=== PATIENT | female | born 1970 | race Caucasian/White ===

== ENCOUNTER 2017-01-28 11:22 | Emergency (ER) | payer OTHER ==
[~2017-01-28] VITALS: Ht 167.6 cm; Wt 95.5 kg
[~2017-01-28 11:22] MED LIST: ALD250; FRRS300; IBUP600T44; OXYC-57; PRCSR90; PRENTAB26
[2017-01-28 11:29] VITALS: TEMP 36.6; Ht 167.6 cm; Wt 95.5 kg
[2017-01-28] MEDS ORDERED: XYLOCAINE 1%/SOD BICARB 20 ML VIAL INFIL ONE (12:15)
[2017-01-28] MEDS ORDERED: DIPHTHERIA/TETANUS/PERTUSSIS 0.5 ML SYR/VIAL IM. ONE (12:15)
[2017-01-28 12:53] VITALS: BP 163/91; PULSE 67; O2SAT 100
--- NOTE | 2017-01-28 17:28 | EMERGENCY ROOM VISIT NOTE ---
ED Visit Note First contact with patient: 12:05 Chief Complaint: I cut my right middle finger at work. History of Present Illness: Ms. Waller is a 46-year-old white female who ambulates into the ED complaining of right middle finger laceration. Patient reports approximately one hour ago she was cutting a piece of aluminum foil on the serrated edge of the box and accidentally cut her right middle finger over the distal phalanx. Prior to arrival she control bleeding but did not wash the wound. Associated with her wound she reports she is having a stinging discomfort in the distal aspect of the finger. She rates her discomfort 1/10. Her pain is nonradiating. Her pain worsens with palpation. She has not identified any alleviating factors related to the pain. She has not taken any medications for pain prior to arrival at the hospital. She denies any associated symptoms with her laceration. Review of Systems: As noted above in history of present illness. Past Medical History: Hypertension. Current Medications: Multivitamins. Allergies to Medications: Patient denies. Social History: Patient is currently employed; she lives with her and feels safe in her home environment; she denies tobacco use. Tetanus Immunization Status: Patient reports greater than 10 years. Physical Examination: Vital Signs: Date Time Temp Pulse Resp B/P Pulse Ox O2 Delivery O2 Flow Rate FiO2 01/28/17 12:53 67 18 163/91 100 01/28/17 11:29 36.6 72 18 178/118 99 Room Air GENERAL: 46-year-old female in mild distress due to pain, nontoxic-appearing, afebrile and hemodynamically stable. NEUROLOGICAL: Awake, alert and oriented to person, place and time. Answering questions appropriately and following commands. Normal gait. Good hand eye coordination. No focal motor sensory deficits. SKIN: Warm, dry and pink. Over the anterior aspect of the distal phalanx of the right middle finger patient has a 3.1 cm full-thickness laceration with minimal bleeding. RIGHT MIDDLE FINGER: No gross bony deformity. Full range of motion in flexion and extension of the MCP, PIP and DIP joint against resistance. Throughout the finger the skin was warm and pink and capillary refill is brisk. She was able to distinguish light sensations through all dermatomes of the finger. ED Course: Patient is assessed as noted above. Wound Repair: Complexity: Basic Verbal consent was obtained after the risks and benefits were explained. The skin was prepped with betadine and a sterile field set. Wound edges of the wound was anesthetized with 1.5 ml buffered 1% lidocaine. The wound was explored for foreign bodies and none found. Copious irrigation was performed using sterile saline. With direct pressure the bleeding subsided. Debridement was not performed. The wound edges were approximated using 5-0 Ethilon with 7 simple interrupted sutures. Hemostasis and excellent approximation was achieved. Antibacterial ointment and a sterile dressing applied. No complications and the patient tolerated the procedure well. Patient was educated about sandra's findings and instructed on her treatment plan; she verbalizes understanding and agreement with this plan. Clinical Impression: Laceration of the right middle finger. Disposition: Patient discharged home in stable condition; prior to departure she was reassessed and subjectively reported she was pain-free. Plan: Comfort measures, wound care, and signs of infection were discussed with the patient. Patient was encouraged to follow-up with Workmen's Compensation or return to the ED for signs of infection and/or suture removal in 8-10 days.
== END 2017-01-28 12:56 | disposition home or self-care (01) ==
LOC: C.EDB 11:23 → C.EDD 12:56
DX: S61.212A Laceration without foreign body of right middle finger without damage to nail, initial encounter (principal); W45.8XXA Other foreign body or object entering through skin, initial encounter; Z23 Encounter for immunization; I10 Essential (primary) hypertension

== ENCOUNTER 2017-02-07 10:32 | Emergency (ER) | payer OTHER ==
[~2017-02-07] VITALS: Ht 162.6 cm; Wt 96.7 kg
[~2017-02-07 10:32] MED LIST changes: -ALD250; -FRRS300; -IBUP600T44; -OXYC-57; -PRCSR90
[2017-02-07 10:38] VITALS: BP 161/96; PULSE 99; TEMP 36.8; O2SAT 100; Ht 162.6 cm; Wt 96.7 kg
--- NOTE | 2017-02-07 10:58 | EMERGENCY ROOM VISIT NOTE ---
ED Visit Note First contact with patient: 10:48 CHIEF COMPLAINT: Suture removal HISTORY OF PRESENT ILLNESS: This 46 year old female patient returns to the ED today for removal of sutures that were placed 10 days ago. There has been no swelling, redness, or drainage from the wound. The patient feels like the laceration is healing well. REVIEW OF SYSTEMS: A 6 system review of systems was completed with positives and pertinent negatives listed in the HPI. PMH: Unchanged from previous visit. ALLERGIES: No known allergies PHYSICAL EXAM: Vital Signs: Reviewed Nurse's notes, vital signs stable. GENERAL : This is a 46-year-old female, in no acute distress. SKIN: There is a sutured wound on the finger with no signs of infection. There is no erythema, swelling, or tenderness. EMERGENCY DEPARTMENT COURSE: 6 sutures were removed without any difficulty and there was no separation of the wound edges. The patient was discharged home in good condition. DIAGNOSIS: Healing laceration and suture removal DISCHARGE INSTRUCTIONS AND TREATMENT: Wash any remaining crusts off of the wound today and resume your normal activities. Current/Historical Medications Miscellaneous Medications Multivit/Min/Iron/Fol Ac/Pren ( Vitamin) Allergies Coded Allergies: No Known Allergies (Verified , 02/07/17) Vital Signs Date Time Temp Pulse Resp B/P Pulse Ox O2 Delivery O2 Flow Rate FiO2 02/07/17 10:38 36.8 99 18 161/96 100 Room Air Departure Information Impression Primary Impression: Encounter for removal of sutures Dispostion Home / Self-Care Condition GOOD Referrals No Doctor, Assigned (PCP) Patient Instructions My [facility] Additional Instructions Wash any remaining crusts off of the wound today and resume your normal activities.
== END 2017-02-07 11:05 | disposition home or self-care (01) ==
LOC: C.EDB 10:33 → C.EDD 11:05
DX: Z48.02 Encounter for removal of sutures (principal)

== ENCOUNTER → 2018-04-13 | Day surgery (SDC) | payer OTHER ==
[2018-04-08 11:03] VITALS: BMI 34.0
[~2018-04-13] VITALS: Ht 167.6 cm; Wt 97.3 kg
[~2018-04-13] MED LIST changes: +ATROPINE SULFATE 0.1 MG/ML 5ML SYR IV PRN; +CIPR-255 PO; +CIPROFLOXACIN / D5W 400 MG IV SCH; +CIPROFLOXACIN 400MG / D5W IV SCH; +Cysto-Conray II 17.2% 250ML BOTTLE ONE; +DEXAMETHASONE SOD INJ 4 MG/ML VIAL ONE; +DOCU-94 PO; +EpHEDrine SULFATE INJ 50 MG/ML AMP IV PRN; +FENTANYL CITRATE INJ 50 MCG/1 ML 2 ML VIAL IV PRN; +FENTANYL CITRATE INJ 50 MCG/1 ML 2 ML VIAL ONE; +FERR1TAB23 PO; +HYDR-5688 PO; +HYDROCODONE/ACETAMIN 5/325MG TAB PO PRN; +HydrALAZINE HCL 20 MG/ML VIAL ONE; +KETOROLAC TROMETHAMINE 15 MG/ML VIAL IV. STA; +LABETALOL HCL IV 5 MG/ML 20ML ONE; +LACTATED RINGER'S 1000ML 1,000 ML IV SCH; +LIDOCAINE HCL 2% 2 ML VIAL (20MG/ML) ONE; +MIDAZOLAM HCL 1 MG/ML 2ML VIAL ONE; +MULTTAB58 PO; +ONDANSETRON INJ 2 MG/ML 2 ML VIAL IV PRN; +ONDANSETRON INJ 2 MG/ML 2 ML VIAL ONE; +PHEN95TA14 PO; +PHENAZOPYRIDINE HCL 200 MG TAB PO STA; -PRENTAB26; +PROPOFOL IV EMULSION 10 MG/ML 20 ML VIAL ONE; +SODIUM CHLORIDE 0.9% 1000ML 1,000 ML IV SCH
[2018-04-13 13:04] VITALS: BP 181/93; PULSE 69; TEMP 36.5; O2SAT 96; Ht 167.6 cm; Wt 97.3 kg
--- NOTE | 2018-04-13 13:44 | History & Physical Bridge Note ---
H&P Re-Evaluation Bridge Note: I have examined the patient, reviewed the History & Physical and in the interval since the performance of the History & Physical I have noted the following changes of clinical significance: No changes noted
--- NOTE | 2018-04-13 16:08 | [facility] Operative Report ---
Operative Report Operative Date Apr 13, 2018. Pre-Operative Diagnosis Nephrolithiasis Post-Operative Diagnosis Nephrolithiasis Procedure(s) Performed Cystoscopy, Right Ureternephroscopy, Laser Lithotripsy, basket extraction and manipulation of stone, right Stent Placement (6 Yemeni by 24cm), Left Stent Removal Surgeon Dr. Jefferson Blender / Cook Surgeon(s) none Estimated Blood Loss 5 cc Specimens none per surgeon Drains stent Anesthesia Type General Complication(s) none Disposition yes Recovery Room / PACU Description of Procedure Patient was identified in the preoperative holding area, appropriate informed consents reviewed and completed and she was transported to the operating suite. Upon arrival she received appropriate preoperative antibiotics in the form of ciprofloxacin. Adequate general anesthesia was achieved, and she was placed in dorsal lithotomy position where she was sterilely prepped and draped in standard fashion. I began the case with passing a 22 Yemeni cystoscope with 30 lens. Full inspection of the bladder was conducted. She had a clear bladder wall without any abnormalities. She had a left sided stent easily identified protruding from the left ureteral orifice. The distal aspect of the stent was grasped and under fluoroscopic guidance, was withdrawn. Immediately after withdrawal of the stent, numerous small stone fragments passed. Fluoroscopic evaluation revealed some opacity in the proximal ureter, however I reevaluated this at the conclusion of the case in this area had cleared. Following removal of the left-sided stent, turned my attention to the right ureteral orifice. This was cannulated with a sensor wire and a 10 Yemeni double -lumen catheter. Wire advanced the kidney under fluoroscopic guidance without difficulty. A second wire was then introduced utilizing second port of the 10 Yemeni double-lumen catheter. After withdrawing the 10 Yemeni double-lumen catheter, a ureteral access sheath was advanced over one wire will reserving other as a safety wire. I introduced a flexible ureteroscope through the access sheath and evaluated the kidney. She was found to have stone in the upper pole as well as a significant stone burden in the extreme lower pole. I began with a 400 m laser fiber and began fragmenting upper pole stone. Unfortunately, this was in a sub calyx at an awkward angle and I found difficult to completely fragment the stone. I subsequently passed a basket device grasped the stone and moved to a midpole calyx at which point I was able to completely fragment the stone. I then turned my attention to the lower pole. Utilizing a 400 m laser fiber, there is limited mobility in this lower pole of the yet I fragmented the maximal amount I could reach with this fiber. I then subsequently switched to a 200 m fiber which allowed further treatment. I was able to treat the vast majority of the stone however there is an approximately 6 mm segment remaining in angle and location that I could not successfully treat. I attempted to basket out all large pieces and complete the treatment of them in other locations, however this last residual piece I was unable to manipulate out of the lower pole. Before completing the kidney section of the case, I searched through all the calyces again and fragmented all the residual stone debris in the pieces that I deemed safe for spontaneous passage. I then performed a very careful exit ureteroscopy identifying no stones within the ureter. There also is no trauma to the ureter from the access sheath. I placed a 6 Yemeni by 24 cm double-J ureteral stent over the existing safety wire, observing a good curl in the kidney as well as the bladder. The bladder was decompressed and the case concluded. She was extubated and taken to the PACU in stable condition.. I attest to the content of the Intraoperative Record and any orders documented therein. Any exceptions are noted below.
--- NOTE | 2018-04-13 16:10 | Discharge Instructions ---
Discharge Instructions Date of Service Apr 13, 2018. Admission Reason for Admission: Nephrolithiasis Discharge Discharge Diagnosis / Problem: nephrolithiasis Discharge Goals Goal(s): Decrease discomfort, Improve function, Increase independence, Improve disease control Activity Recommendations Activity Limitations: resume your previous activity Lifting Limitations: none Exercise/Sports Limitations: none, as tolerated May Resume Sexual Activity: when tolerated Shower/Bathe: no limitations Driving or Machine Use: resume 1 day after discharge . Instructions / Follow-Up Instructions / Follow-Up Please keep your previously scheduled follow up appointment. Current Hospital Diet Patient's current hospital diet: Discharge Diet Recommended Diet: Regular Diet Procedures Procedures Performed: Cystoscopy, Right Ureternephroscopy, Laser Lithotripsy, basket extraction and manipulation of stone, right Stent Placement (6 Norwegian by 24cm), Left Stent Removal Pending Studies Studies pending at discharge: no Medical Emergencies . Who to Call and When: Medical Emergencies: If at any time you feel your situation is an emergency, please call 911 immediately. . Non-Emergent Contact Non-Emergency issues call your: Urologist Call Non-Emergent contact if: you have a fever, temperature is above 101.5 . . "Provider Documentation" section prepared by Herbie Hair. .
--- NOTE | 2018-04-13 16:21 | DIAGNOSTIC IMAGING REPORT ---
KUB HISTORY: RT CYSTO/LASER/STENT FLUOROSCOPY TIME: 32 seconds. FINDINGS: A single fluoroscopic spot image of the right upper quadrant demonstrates the proximal portion of a right ureteral stent. This is in good position. There is a stone within the lower pole of the right kidney. IMPRESSION: Fluoroscopy provided for right ureteral stent placement. The proximal portion of the stent is identified and appears to be in good position.. Electronically signed by: Ata Shell M.D. 04/13/2018 4:20 PM Dictated Date/Time: 04/13/2018 4:19 PM
--- NOTE | 2018-04-13 17:15 | Anesthesiology Progress Note ---
Anesthesia Post Op Note Date & Time Apr 13, 2018 at 17:08 Vital Signs Pain Intensity: 0 Vital Signs Past 12 Hours Date Time Temp Pulse Resp B/P (MAP) Pulse Ox O2 Delivery O2 Flow Rate FiO2 04/13/18 17:00 74 21 154/105 98 Room Air 04/13/18 16:50 75 19 166/95 97 Room Air 04/13/18 16:40 74 22 175/99 97 Room Air 04/13/18 16:30 76 17 202/99 99 Oxymask 10 04/13/18 16:20 74 21 186/118 100 Oxymask 10 04/13/18 16:10 36.0 82 16 199/120 100 Oxymask 10 04/13/18 13:04 36.5 69 20 181/93 (122) 96 Room Air Notes Mental Status: alert / awake / arousable, participated in evaluation Pt Amnestic to Procedure: Yes Nausea / Vomiting: adequately controlled Pain: adequately controlled Airway Patency, RR, SpO2: stable & adequate BP & HR: stable & adequate Hydration State: stable & adequate Anesthetic Complications: no major complications apparent The patient is a 47 y/o female with a h/o HTn, nephrolithiasis, anemia and obesity s/p cystoscopy with laser lithotripsy. The patient's preop BP was elevated at 181/93. The patient is not currently on BP medication, but stated her BPs are being monitored by her PCP. The patient's BPs intraop were 110s-14- s/60s-100s. In recovery, the patient's BP became elevated to 199/120. The patient received a total of 20mg IV labetalol and 20mg IV Hydralazine in recovery. The patient also required IV antihypertensives after her last surgery as well. The patient's BP on discharge from PACU was 161/89 HR 80s. . I informed the patient that her BP was elevated in PACU and that she required medication to bring it down. I instructed her to call her PCP tomorrow am and to make him aware so that appropriate follow up could be scheduled. I also instructed her to go to the ED with any chest pain, shortness of breath, lightheaded or dizziness or with any other concerns. She understands and agrees.
[2018-04-13 17:17] VITALS: BP 164/85; PULSE 88; TEMP 36.6; O2SAT 99
[2018-04-13 17:47] VITALS: BP 156/80; PULSE 80; TEMP 36.6; O2SAT 98
== END | disposition home or self-care (01) ==
LOC: C.ACU 12:37
PROVIDERS: ATTEND Urology
DX: N20.0 Calculus of kidney (principal); E66.9 Obesity, unspecified; Z68.34 Body mass index [BMI] 34.0-34.9, adult; I10 Essential (primary) hypertension

== ENCOUNTER → 2018-04-26 | Outpatient (CLI) | payer OTHER ==
[~2018-04-26] MED LIST changes: -ATROPINE SULFATE 0.1 MG/ML 5ML SYR IV PRN; -CIPROFLOXACIN / D5W 400 MG IV SCH; -CIPROFLOXACIN 400MG / D5W IV SCH; -Cysto-Conray II 17.2% 250ML BOTTLE ONE; -DEXAMETHASONE SOD INJ 4 MG/ML VIAL ONE; -EpHEDrine SULFATE INJ 50 MG/ML AMP IV PRN; -FENTANYL CITRATE INJ 50 MCG/1 ML 2 ML VIAL IV PRN; -FENTANYL CITRATE INJ 50 MCG/1 ML 2 ML VIAL ONE; -HYDROCODONE/ACETAMIN 5/325MG TAB PO PRN; -HydrALAZINE HCL 20 MG/ML VIAL ONE; -KETOROLAC TROMETHAMINE 15 MG/ML VIAL IV. STA; -LABETALOL HCL IV 5 MG/ML 20ML ONE; -LACTATED RINGER'S 1000ML 1,000 ML IV SCH; -LIDOCAINE HCL 2% 2 ML VIAL (20MG/ML) ONE; -MIDAZOLAM HCL 1 MG/ML 2ML VIAL ONE; -ONDANSETRON INJ 2 MG/ML 2 ML VIAL IV PRN; -ONDANSETRON INJ 2 MG/ML 2 ML VIAL ONE; -PHENAZOPYRIDINE HCL 200 MG TAB PO STA; -PROPOFOL IV EMULSION 10 MG/ML 20 ML VIAL ONE; -SODIUM CHLORIDE 0.9% 1000ML 1,000 ML IV SCH
--- NOTE | 2018-04-26 09:34 | DIAGNOSTIC IMAGING REPORT ---
KUB CLINICAL HISTORY: N20.0 [id number] COMPARISON STUDY: 04/13/2018. CT 03/09/2018. FINDINGS: Interval removal of the left ureteral stent. Interval placement of a right ureteral stent. Fragmentation of the calcifications of the lower aspect of the right to lesser extent left kidney. The proximal left ureteral calculus is no longer present. No significant perirenal ureteral or ureteral calcifications of the right. Improved exam. IMPRESSION: Improved exam with a right ureteral stent in good position. Interval fragmentation of the lower pole renal calcifications. No evidence for ureteral calculus on the current study. The above report was generated using voice recognition software. It may contain grammatical, syntax or spelling errors. Electronically signed by: Tirso Fernandez M.D. 04/26/2018 9:33 AM Dictated Date/Time: 04/26/2018 9:31 AM
== END | disposition home or self-care (01) ==
LOC: C.RAD1850 09:09
PROVIDERS: ATTEND Urology
DX: N20.0 Calculus of kidney (principal)